=== PATIENT | male | born 1940 | race Hispanic/Latino ===

== ENCOUNTER 2018-03-11 07:51 | Day surgery (SDC) | payer MEDICARE ==
[2018-03-11] MEDS ORDERED: ECOTRIN PO NR (08:25)
[2018-03-11 08:59] LABS: Basophils # (Auto) 0.1 K/mm3 (0.0-0.1); Basophils % (Auto) 1.5 % (0.0-1.8); Eosinophils # (Auto) 0.2 K/mm3 (0.0-0.4); Eosinophils % (Auto) 3.7 % (0.0-4.3); Hematocrit 48.2 % (35.5-45.6); Hemoglobin 15.7 gm/dl (11.8-15.2); Lymphocytes # (Auto) 1.2 K/mm3 (1.2-5.4); Lymphocytes % (Auto) 17.9 % (13.4-35.0); Mean Corpuscular HGB Conc 33 % (32-34); Mean Corpuscular Hemoglobin 30 pg (28-32); Mean Corpuscular Volume 93 fl (84-94); Monocytes # (Auto) 0.7 K/mm3 (0.0-0.8); Monocytes % (Auto) 11.1 % (0.0-7.3); Platelet Count 251 K/mm3 (140-440); Red Blood Count 5.21 M/mm3 (3.65-5.03); Red Cell Distribution Width 16.3 % (13.2-15.2)
[2018-03-11] MEDS ORDERED: NACL 0.9% 500 ML 500 ML IV SCH (09:00)
[2018-03-11] MEDS ORDERED: CALAN ONE (09:01)
[2018-03-11] MEDS ORDERED: HEPARIN/NS 5000 UNIT/500ML(CATH LAB) 1,000 ML IR ONE (09:01)
[2018-03-11] MEDS ORDERED: HEPARIN 10,000 UNITS/10 ML ONE (09:01)
[2018-03-11] MEDS ORDERED: NITROGLYCERIN SYRINGE 0 ML ONE (09:01)
[2018-03-11 09:09] LABS: INR 1.05 (0.87-1.13)
[2018-03-11 09:15] LABS: Calcium 9.2 mg/dL (8.4-10.2)
[2018-03-11] MEDS: VERSED ONE ×2 (09:44→10:02)
[2018-03-11] MEDS: SUBLIMAZE ONE ×2 (09:44→10:02)
[2018-03-11] MEDS: XYLOCAINE 2% INFILTRATI ONE ×2 (09:47→10:01)
--- NOTE | 2018-03-11 12:12 | Cardiac Catherization Report ---
CARDIAC CATHETERIZATION CLINICAL INFORMATION: The patient is a 78-year-old gentleman who presented to the office a few weeks ago with atrial fibrillation, subsequently was noted to have severe LV dysfunction with evidence of congestive heart failure. He was treated with diuretics and TOMI inhibitors and beta blockers and his symptoms are somewhat improved. Considering his severe LV dysfunction noted, EF around 15%, the patient was advised to have a cardiac catheterization for definitive diagnosis and treatment. The patient is aware of the procedure, potential complications, and alternatives of therapy. DESCRIPTION OF PROCEDURE: The patient was brought to the catheterization laboratory in a fasting condition. The right wrist area and forearm thoroughly cleansed with Betadine solution. Sterile drapes were applied. Local anesthesia was achieved using 2% Xylocaine. Right radial artery puncture was made using 21-gauge arterial puncture needle. Subsequently, 5-Serbian sheath was introduced. The patient received 5 mg of intra-arterial verapamil and 3000 units of intravenous heparin. 5-Serbian multipurpose catheter was advanced into the ascending aorta. However, it was very tortuous vessel and could not manipulate the catheters to go forward. Hence access was changed to right femoral artery. Local anesthesia was given in the right groin. Subsequently, right femoral artery puncture was made using 5-Serbian micropuncture needle. A 6-Serbian sheath was introduced. Multipurpose catheter was used to obtain the left ventriculogram done in KIRKPATRICK projection. JR4 catheter was used to obtain the angiograms of the right coronary artery and JL3.5 catheter was used to obtain the left coronary angiograms. At the end of the procedure, angiograms of the right femoral artery were obtained. When it was felt appropriate, a 6-Serbian Angio-Seal device was applied in the right groin with good hemostasis. Radial band was applied in the right radial artery with good hemostasis for the right radial access. It is to be noted the patient was sedated with IV Versed and fentanyl. Following findings were noted: HEMODYNAMICS: 1. Opening aortic pressure 127/81, left ventricular pressure 125/26. No gradient across the aortic valve. Estimated ejection fraction 15-20%. 2. Left ventriculogram done in KIRKPATRICK projection showed moderately dilated left ventricle with severe diffuse hypokinesis, ejection fraction 15-20%. Right coronary artery nondominant vessel, arises normally from right coronary cusp, angiographically smooth and normal. Left coronary artery arises normally from left coronary cusp. There is calcification in the area of the left main and proximal LAD. Distal left main showed 20-30% distal lesion along with 30% smooth proximal LAD lesion. Mid and distal LAD is smooth. LAD curves around the apex. Circumflex artery is dominant vessel and its branch are angiographically smooth and normal. FINAL IMPRESSION: Moderately dilated left ventricle with severe diffuse hypokinesis, ejection fraction 15-20%. Mitral regurgitation could not be evaluated. Mild distal left main disease and proximal LAD disease with no significant coronary artery disease documented. The patient will be continued on appropriate medical therapy for his severe LV dysfunction along with appropriate therapy for his mild coronary artery disease noted. The patient tolerated the procedure well. No hematoma noted in the right groin. Findings were explained to the patient and multiple family members. JOB# [id number] ALMA DELIA/TAYLOR
[2018-03-11 14:03] VITALS: BP 95/67
--- NOTE | 2018-03-13 11:54 | Short Stay Summary ---
Short Stay Documentation Date of service: 03/11/18 - History H&P: obtained from office - Allergies and Medications Current Medications: Allergies No Known Allergies Allergy (Verified 09/18/16 22:21) Home Medications Medication Instructions Recorded Confirmed Last Taken Type Furosemide [Lasix TAB] 40 mg PO QDAY 03/11/18 03/11/18 03/11/18 06:00 History Metoprolol [Lopressor] 25 mg PO BID 03/11/18 03/11/18 03/11/18 06:00 History Rivaroxaban [Xarelto] 20 mg PO QDAY 03/11/18 03/11/18 03/10/18 History Sacubitril/Valsartan [Entresto 49 1 each PO DAILY 03/11/18 03/11/18 03/11/18 06: 00 History mg-51 mg Tablet] - Brief post op/procedure progress note Date of procedure: 03/11/18 Pre-op diagnosis: CMP Post-op diagnosis: same Procedure: C - see dictated cath report Anesthesia: local Estimated blood loss: none Condition: stable - Disposition Condition at discharge: Stable Disposition: DC-01 TO HOME OR SELFCARE - Discharge Diagnoses (1) Nonischemic dilated cardiomyopathy Status: Chronic (2) Atrial fibrillation Status: Chronic Short Stay Discharge Plan Activity: advance as tolerated Diet: low fat, low cholesterol, low salt Wound: open to air, keep clean and dry, per your surgeon's advice Follow up with: GILDA TRUJILLO MD [Primary Care Provider] - 7 Days Forms: CardCath PCI D/C Instructions
== END 2018-03-11 13:10 | disposition home or self-care (01) ==
LOC: CATHLABREC 07:51
PROVIDERS: ATTEND Internal Medicine
DX: I25.10 Atherosclerotic heart disease of native coronary artery without angina pectoris (principal); I48.91 Unspecified atrial fibrillation; I50.22 Chronic systolic (congestive) heart failure; I11.0 Hypertensive heart disease with heart failure; Z96.649 Presence of unspecified artificial hip joint; Z98.890 Other specified postprocedural states
CPT/HCPCS: 36415; 80048; 85025; 85610; 85730; 93005; 93010; 93458; 99152; 99153; C1760; C1769; C1894; J1644; J2250; J3010; J7040; Q9967

== ENCOUNTER 2020-01-05 10:26 | Outpatient (CLI) | payer MEDICARE ==
--- NOTE | 2020-01-05 11:36 | XRay Report ---
CHEST 2 VIEWS INDICATION: SHORTNESS OF BREATH. COMPARISON: None. FINDINGS: Support devices: None. Heart: Mildly enlarged. Pulmonary vasculature: Normal. Lungs/pleura: Subtle reticular interstitial opacities in the left midlung along with relatively dense left upper pleural calcifications. Similar but less thick right upper pleural calcifications. A prom inent linear calcification along the left heart border is clearly calcification in the pericardium. M ild right basal reticular interstitial opacities which are less prominent than on the left. No pleura l effusion. No pneumothorax. Additional findings: None. IMPRESSION: 1. No acute findings. 2. Subtle bilateral reticular interstitial lung opacities and bilateral calcified pleural plaques sug gest chronic lung and pleural disease. The pattern is not typical of asbestosis in that there are no calcified diaphragmatic plaques. Recommend CT chest without contrast for further evaluation. Signer Name: Fredy Snyder MD Signed: 01/05/2020 11:32 AM Workstation Name: [id number]
== END 2020-01-05 10:27 | disposition home or self-care (01) ==
LOC: SPVIMAG 10:26
PROVIDERS: ATTEND Internal Medicine
DX: J94.8 Other specified pleural conditions (principal); I31.1 Chronic constrictive pericarditis; I51.7 Cardiomegaly
CPT/HCPCS: 71046

== ENCOUNTER 2020-02-17 07:44 | Outpatient (CLI) | payer MEDICARE ==
--- NOTE | 2020-02-17 08:57 | Cat Scan Report ---
CT CHEST WITHOUT CONTRAST INDICATION / CLINICAL INFORMATION: ABNORMAL CXR. TECHNIQUE: Axial CT images were obtained through the chest without contrast. Sagittal and coronal reformatted im ages. All CT scans at this location are performed using CT dose reduction for ALARA by means of autom ated exposure control. COMPARISON: Chest x-ray dated 01/05/2020 FINDINGS: HEART: Mild cardiomegaly. No pericardial effusion. THORACIC AORTA: Mildly ectatic with mild scattered calcific plaques. No aneurysm. MEDIASTINUM and PUJA: No significant abnormality. LUNGS: No acute air space or interstitial disease. There is minor linear scarring in the superior li ngula. PLEURA: Partially calcified pleural plaques are noted laterally, and to a lesser extent, posteriorly in both lungs. Focal pleural plaque along the left heart border measuring up to 2 cm is also noted. N o significant hemidiaphragm plaques. No pneumothorax. SKELETAL SYSTEM: No significant abnormality. UPPER ABDOMEN: No significant abnormality. ADDITIONAL FINDINGS: None. IMPRESSION: Mild cardiomegaly. Bilateral pleural plaques as described above. Although this could be secondary to previous asbestos e xposure, this pattern is not the typical distribution of the plaques. This could also be secondary to previous pleural insult such as empyema. No malignant process is suspected on noncontrast CT. The kaushal ng parenchyma is within normal limits for this person's age. Consider surveillance. Signer Name: Candido Mcintosh Jr, MD Signed: 02/17/2020 8:53 AM Workstation Name: [id number]
== END 2020-02-17 07:45 | disposition home or self-care (01) ==
LOC: CT 07:44
PROVIDERS: ATTEND Internal Medicine
DX: I70.0 Atherosclerosis of aorta (principal); J43.9 Emphysema, unspecified; I51.7 Cardiomegaly; R93.89 Abnormal findings on diagnostic imaging of other specified body structures
CPT/HCPCS: 71250

== ENCOUNTER 2020-02-23 07:24 | Outpatient (CLI) | payer MEDICARE | END 2020-02-23 07:25 | disposition home or self-care (01) | LOC: CT 07:24 | DX: N20.0 Calculus of kidney (principal); R31.0 Gross hematuria; I70.0 Atherosclerosis of aorta; N40.0 Benign prostatic hyperplasia without lower urinary tract symptoms ==